=== PATIENT | female | born 2005 | race Caucasian/White ===

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

== ENCOUNTER 2024-03-30 19:31 | Emergency (ER) | payer OTHER, SELFPAY ==
--- NOTE | ~2024-03-30 | XR_ITS ---
EXAMINATION: XR LUMBOSACRAL SPINE CLINICAL INFORMATION: Low back pain COMPARISON: None available. TECHNIQUE: Three views of the lumbosacral spine. FINDINGS: There is normal lumbar lordosis. The vertebral heights and alignment is normal. There is no visible acute fracture, dislocation or subluxation. The SI joints are symmetrical and normal. XR/XR lumbar spine 2-3V IMPRESSION: Unremarkable lumbar spine exam.
--- NOTE | ~2024-03-30 | XR_ITS ---
EXAMINATION: XR CHEST, 2 VIEWS CLINICAL INFORMATION: Fever. COMPARISON: None. TECHNIQUE: PA and lateral views of the chest were obtained. FINDINGS: Lungs are clear. No consolidation, pneumothorax, or pleural effusion. Cardiac and mediastinal contours are normal. Pulmonary vasculature is unremarkable. Trachea is midline. Osseous structures are unremarkable. XR/XR chest 2V IMPRESSION: No acute cardiopulmonary findings.
--- NOTE | 2024-03-30 19:35 | ED_ITS ---
HPI - URI/Sore Throat General Chief Complaint: Upper Respiratory Symptoms Stated Complaint: Sore throat Time Seen by Provider: 03/30/24 20:12 Source: patient and RN notes reviewed Mode of arrival: ambulatory Limitations: no limitations History of Present Illness ED Provider: Nahomi Gonzales PA-C HPI Narrative: This is a 19-year-old female who presents emergency department with complaints of sore throat and body aches which had started today. Patient denies any fevers, chills. She also reports that over the last 2 days she has had low back pain, which occurred after lifting a heavy object at work 2 days ago. She denies any numbness or tingling or weakness into her lower legs. Pain does not radiate. She denies any sick contacts. Denies any headaches, chest pain, shortness of breath, abdominal pain, nausea, ear pain, nasal discharge, nasal congestion, vomiting or diarrhea. She endorses reports urinary frequency, denies any dysuria, hematuria. Denies chance of . No vaginal discharge or bleeding. No other complaints or concerns at this time. MD elicited complaint: sore throat Consistency: constant Severity: mild Able to tolerate fluids by mouth: Yes Exacerbating factors: swallowing Relieving factors: nothing Associated symptoms: sore throat Treatments prior to arrival: none Related Data Previous Rx's ?Medication ?Instructions ?Recorded ibuprofen 600 mg tablet 600 mg PO Q8H PRN pain #30 tabs 02/20/22 omeprazole 20 mg capsule,delayed 20 mg PO BID 30 days #60 caps 08/19/22 release ondansetron 4 mg disintegrating 4 mg PO Q8H PRN nausea and 08/19/22 tablet vomiting #20 tabs aluminum hydrox-magnesium carb 95 15 ml PO TID PRN dyspepsia #355 mL 08/24/22 mg-358 mg/15 mL oral suspension (Gaviscon) ibuprofen 600 mg tablet 600 mg PO Q6H PRN pain #30 tabs 12/14/22 ondansetron 4 mg disintegrating 4 mg PO Q8H PRN nausea and 01/08/23 tablet vomiting #20 tabs acetaminophen 500 mg tablet 500 mg PO Q6H PRN fever or pain 07/04/23 #20 tabs fluticasone propionate 50 1 spray intranasal Q12H #16 grams 07/04/23 mcg/actuation nasal spray,suspension (Flonase Allergy Relief) acetaminophen 650 mg 650 mg PO Q8H PRN pain #30 tabs 03/31/24 tablet,extended release (Tylenol 8 Hour) amoxicillin 875 mg-potassium 1 tab PO BID 10 days #20 tabs 03/31/24 clavulanate 125 mg tablet ibuprofen 600 mg tablet 600 mg PO Q6H PRN pain #30 tabs 03/31/24 Allergies Allergy/AdvReac Type Severity Reaction Status Date / Time No Known Allergies Allergy Verified 03/30/24 19:37 Review of Systems 2 Review of Systems: Yes all other systems are reviewed and are negative Constitutional: Constitutional: Reports as per [facility] Past Medical History Attestation statement: The following information was validated with the patient. Medical History No pertinent past medical history Social History Social History Alcohol intake: never Patient Tobacco Use Status: Never used Tobacco Smoked in Last 30 Days: No Advance Directives: No Advance Directives Information Provided: No Do you have a plan to hurt others: No Plan Patient : No Physical Exam 2 Vital Signs: Vital Signs: Last Vital Signs Temp 97.9 F 03/31/24 02:36 Pulse 102 H 03/31/24 02:36 Resp 16 03/31/24 02:36 BP 110/58 L 03/31/24 02:36 Pulse Ox 98 03/31/24 02:36 O2 Del Method Room Air 03/31/24 02:36 BMI result Body Mass Index 27.5 Const: General: cooperative, comfortable and no acute distress O rientation/consciousness: patient oriented x3 Limitations: no limitations HEENT: Other: Bilateral tonsillar hypertrophy and erythema, no exudates, uvula is midline. Tender anterior cervical lymphadenopathy; full range of the neck; no trismus, drooling, or dysphonia Head: Yes normal to inspection, Yes normocephalic and Yes atraumatic E ars: hearing grossly normal bilaterally and TM's normal bilaterally General nose exam: Normal external nose present Face and sinus: Yes normal facial exam Mouth: Normal oral and palatal mucosa present, oropharynx normal and moist mucous membranes Throat: Yes posterior oropharynx normal Eyes: General: appearance normal, both eyes and all related structures E yelids: Yes eyelids normal Conjunctivae: conjunctivae normal Sclerae: s clerae normal Pupils: Equal, round and reactive pupils present EOM: EOMs intact bilaterally Neck: Neck: Yes normal visual inspection, Yes full ROM and Yes no lymphadenopathy Lymphatic: no lymphadenopathy noted Chest: Chest palpation & inspection: normal inspection of the chest Resp: Effort & Inspection: normal respiratory effort and able to speak in complete sentences Auscultation: clear to auscultation bilaterally, no crackles, no rales, no rhonchi and no wheezes Cardio: Rate: regular rate Rhythm: regular rhythm Heart sounds: S1 normal heart sound present and S2 normal heart sound present GI: Other: Abdomen is soft, nontender, nondistended Inspection: Yes normal to inspection : General: Yes no CVA tenderness Back/Spine/Pelvis: Other: tenderness to palptation overlying the lumbar midine spine, no overlying skin changes, erythema or warmth. Back: no CVA tenderness Skin: General skin exam: no rashes or lesions noted Trauma: no lacerations or abrasions Wounds: no wounds Neuro: General: patient oriented x3 and moves all extremities Cranial nerves: Yes Equal, round and reactive pupils present Extrem: General: Yes normal to inspection Right upper extremity: normal to inspection Left upper extremity: normal to inspection Right lower extremity: normal to inspection Left lower extremity: normal to inspection Course Course Course Narrative: This is a Rapid Medical Exam performed in triage by Zuleyma Cisneros PA-C. Full HPI, ROS and PE to be performed by primary ED provider. 19 year-old F w/no sig PMHx presenting to the ED c/o sore throat x today. Also reports lethargy, & left sided low back pain non-radiating. admits to heavy lifting at work. denies sick contacts or travel, hematuria/dysuria, abdominal pain PE: Mild posterior oropharyngeal erythema, uvula midline, talking complete sentences. No CVAT Plan: viral testing, rapid strep Reevaluation(s) Reevaluation #1: Labs returned, she does have leukocytosis with left shift leukocytosis 20.7, chemistry within normal limits, she has no lactic acidosis. Urine does not appear to be profoundly infected. Given circumstances, as advised by my attending physician, Dr. Smith to obtain CT neck and CT abdomen as patient was complaining of back pain as well as sore throat, and unclear where the infection is. She does have tonsillar hypertrophy, and erythematous, likely source of infection however was advised to get CT of the neck as well as CT of the abdomen to rule out retropharyngeal abscess and/or pyelonephritis. Patient was seen by my attending physician, Dr. Hill, who evaluated patient, reporting that oropharynx is erythematous, with tonsillar exudates, appears to be streptococcal or pharyngitis in nature, does not deem that the CT scans are necessary at this time. She is tolerating oral secretions well without difficulty. She is feeling better after receiving fluids. She was given a 1 time dose of Rocephin, morphine, and Zofran. She is feeling much better. Given strict return precautions. She was discharged home with Augmentin. Vital signs improved, patient stable for discharge. Time: 02:06 Medications Administered Discontinued Medications Generic Name Dose Route Start Last Admin Trade Name Freq PRN Reason Stop Dose Admin Acetaminophen 975 mg 03/30/24 21:29 03/30/24 21:44 Acetaminophen 325 Mg Tablet PO 03/30/24 21:30 975 mg ONCE ONE Administration Sodium Chloride 1,000 mls @ 999 mls/hr 03/30/24 23:21 03/31/24 01:38 Ns IV 03/31/24 00:21 Infused .Q1H1M ONE Infusion Sodium Chloride 1,000 mls @ 999 mls/hr 03/30/24 23:42 03/31/24 01:39 Ns IV 03/31/24 00:42 Infused .Q1H1M ONE Infusion Ceftriaxone Sodium 1 gm/ 50 mls @ 100 mls/hr 03/31/24 01:25 03/31/24 02:00 Sodium Chloride IV 03/31/24 01:54 Infused ONCE ONE Infusion Ibuprofen 600 mg 03/30/24 23:21 03/30/24 23:54 Ibuprofen 600 Mg Tablet PO 03/30/24 23:22 600 mg ONCE ONE Administration Morphine Sulfate 4 mg 03/31/24 01:28 03/31/24 01:33 Morphine Sulfate 4 Mg/Ml Cartridge IVPUSH 03/31/24 01:29 4 mg ONCE ONE Administration Protocol Ondansetron HCl 4 mg 03/31/24 01:29 03/31/24 01:32 Ondansetron Hcl 4 Mg/2 Ml Vial IVPUSH 03/31/24 01:30 4 mg ONCE ONE Administration Medical Decision Making Medical Decision Making [facility] Narrative: This is a 19-year-old female who presents emergency department with complaints of sore throat, and back pain. On arrival, patient tachycardic at 125, temperature 99.3?, attributing to pain. She is nontoxic appearing, speaking in full sentences, no trismus, drooling or dysphonia. Oropharynx is erythematous, mild tonsillar hypertrophy or exudates noted. Patient has mild tenderness palpation along the lumbar midline spine, no CVA tenderness. Pain started after lifting a heavy box 2 days ago. Pain has been gradual. She has no urinary or bowel incontinence or retention. No saddle anesthesia. No distal weakness. She denies any urinary symptoms. Viral swabs were obtained, they are negative. X-ray of the lumbar spine negative. Patient was going to be discharged with viral like illness, and musculoskeletal pain however upon discharge, patient found to be febrile at 103.0 tachycardic at 150bpm. Patient moved to main emergency department, labs, blood cultures, lactic acid ordered. Chest x-ray also ordered as well as urine sample. It is unclear what is causing her to have these vital signs however will work patient up. Abdomen is soft and nontender, when inquired more her about urinary symptoms, she does report that she has urinated 3 times in the emergency room. She has no CVA tenderness. Airway is widely patent. Differential Diagnosis Differential Diagnoses: The differential diagnosis associated with the presentation includes Pharyngitis, CUBE CUTTER, UTI, pyelonephritis Admission/Observation Consideration of admission/observation: Escalation of care including admission/observation considered Lab Data [facility] Lab Attestation statement: I reviewed the patient's lab results. Leukocytosis noted at 20.7, with left shift, chemistry within normal limits, urine does not appear to be infected. U preg negative. Viral swabs negative. Negative mono, strep. 03/30/24 23:34 03/30/24 23:34 Labs: Lab Results 03/30/24 03/30/24 03/31/24 Range/Units 19:45 23:34 00:07 WBC 20.7 H (4.8-10.8) X10*3/uL RBC 4.75 (4.20-5.50) X10*6/uL Hgb 13.0 (12.0-16.0) g/dl Hct 38.2 (37.0-47.0) % MCV 80.4 (80.0-98.0) fL MCH 27.4 (27.0-33.0) pg MCHC 34.0 (31.0-35.0) g/dl RDW 12.6 (11.0-16.0) % Plt Count 306 (160-400) X10*3/uL MPV 9.6 (9.4-12.3) fL Immature Gran % (Auto) 0.5 H (0.0-0.4) % Neut % (Auto) 91.0 H (45-73) % Lymph % (Auto) 4.9 L (20-40) % Gibson % (Auto) 3.3 (2-11) % Eos % (Auto) 0.0 (0-4) % Baso % (Auto) 0.3 (0-2) % Lymph # (Auto) 1.0 L (1.2-4.9) X10*3/uL Gibson # (Auto) 0.7 (0.1-1.2) X10*3/uL Eos # (Auto) 0.0 (0.0-0.4) X10*3/uL Baso # (Auto) 0.1 (0.0-0.2) X10*3/uL Abs Immat Gran (auto) 0.11 H (0.00-0.03) X10*3/uL Absolute Neuts (auto) 18.8 H (2.0-8.3) x10*3/uL Absolute Nucleated RBC 0.000 (0.0-0.012) X10*3/uL Nucleated RBC % (auto) 0.0 (0.0-0.2) /100WBC Smear Tech's Comments VERIFIED Sodium 138 (135-145) mmol/L Potassium 3.7 (3.3-5.1) mmol/L Chloride 104 (96-108) mmol/L Carbon Dioxide 21 L (22-29) mmol/L Anion Gap 17 (12-20) BUN 13 (9-16) mg/dL Creatinine 0.76 (0.5-1.4) mg/dL Estim Creat Clear Calc 119.5 Estimated GFR > 60 Random Glucose 99 (60-115) mg/dL Lactic Acid 1.3 (0.5-2.0) mmol/L Calcium 9.6 (8.4-10.2) mg/dL Total Bilirubin 0.8 (0.0-1.0) mg/dL Direct Bilirubin 0.3 (0.0-0.5) mg/dL AST 15 (5-31) U/L ALT 19 (0-31) U/L Alkaline Phosphatase 49 (39-117) U/L Total Protein 8.1 H (6.5-8.0) g/dL Albumin 4.2 (3.5-5.0) g/dL Lipase 18 (8-78) U/L Beta HCG, Quant 6 mIU/mL Urine Color Urine Appearance Urine pH (5.0-9.0) Ur Specific [place] (1.005-1.025) Urine Protein (Neg-Trace) mg/dL Urine Glucose (UA) (Negative) mg/dL Urine Ketones (Negative) mg/dL Urine Blood (Negative) Urine Nitrite (Negative) Ur Leukocyte Esterase (Negative) Urine RBC (0-2) /HPF Urine WBC (0-5) /HPF Ur Squamous Epith Cells (0-2) /HPF Urine Bacteria (None Seen) Hyaline Casts (0-2) /LPF Urine Test (NEGATIVE) Monoscreen Negative (Negative) Influenza Type A (PCR) NEGATIVE (Negative) Influenza Type B (PCR) NEGATIVE (Negative) RSV RNA Qual (PCR) NEGATIVE (Negative) SARS-CoV-2 RNA (RT-PCR) NEGATIVE (Negative) S. pyogenes GrpA SCARLET Negative (Negative) 03/31/24 Range/Units 00:18 WBC (4.8-10.8) X10*3/uL RBC (4.20-5.50) X10*6/uL Hgb (12.0-16.0) g/dl Hct (37.0-47.0) % MCV (80.0-98.0) fL MCH (27.0-33.0) pg MCHC (31.0-35.0) g/dl RDW (11.0-16.0) % Plt Count (160-400) X10*3/uL MPV (9.4-12.3) fL Immature Gran % (Auto) (0.0-0.4) % Neut % (Auto) (45-73) % Lymph % (Auto) (20-40) % Gibson % (Auto) (2-11) % Eos % (Auto) (0-4) % Baso % (Auto) (0-2) % Lymph # (Auto) (1.2-4.9) X10*3/uL Gibson # (Auto) (0.1-1.2) X10*3/uL Eos # (Auto) (0.0-0.4) X10*3/uL Baso # (Auto) (0.0-0.2) X10*3/uL Abs Immat Gran (auto) (0.00-0.03) X10*3/uL Absolute Neuts (auto) (2.0-8.3) x10*3/uL Absolute Nucleated RBC (0.0-0.012) X10*3/uL Nucleated RBC % (auto) (0.0-0.2) /100WBC Smear Tech's Comments Sodium (135-145) mmol/L Potassium (3.3-5.1) mmol/L Chloride (96-108) mmol/L Carbon Dioxide (22-29) mmol/L Anion Gap (12-20) BUN (9-16) mg/dL Creatinine (0.5-1.4) mg/dL Estim Creat Clear Calc Estimated GFR Random Glucose (60-115) mg/dL Lactic Acid (0.5-2.0) mmol/L Calcium (8.4-10.2) mg/dL Total Bilirubin (0.0-1.0) mg/dL Direct Bilirubin (0.0-0.5) mg/dL AST (5-31) U/L ALT (0-31) U/L Alkaline Phosphatase (39-117) U/L Total Protein (6.5-8.0) g/dL Albumin (3.5-5.0) g/dL Lipase (8-78) U/L Beta HCG, Quant mIU/mL Urine Color Dark Yellow Urine Appearance Clear Urine pH 6.0 (5.0-9.0) Ur Specific [place] >= 1.030 H (1.005-1.025) Urine Protein 30 (1+) H (Neg-Trace) mg/dL Urine Glucose (UA) Negative (Negative) mg/dL Urine Ketones Trace (Negative) mg/dL Urine Blood Small (1+) H (Negative) Urine Nitrite Negative (Negative) Ur Leukocyte Esterase Trace H (Negative) Urine RBC 11-20 H (0-2) /HPF Urine WBC 6-10 H (0-5) /HPF Ur Squamous Epith Cells 3-5 (0-2) /HPF Urine Bacteria Trace (None Seen) Hyaline Casts 0-2 (0-2) /LPF Urine Test NEGATIVE (NEGATIVE) Monoscreen (Negative) Influenza Type A (PCR) (Negative) Influenza Type B (PCR) (Negative) RSV RNA Qual (PCR) (Negative) SARS-CoV-2 RNA (RT-PCR) (Negative) S. pyogenes GrpA SCARLET (Negative) Independent Interpretation I performed an independent interpretation of an: EKG Interpretation: Sinus tachycardia at a ventricular rate of 121 beats per minute, ID interval 158, no ST elevation or depression. Radiology Impression Discussion of test interpretation with radiology: I have reviewed the radiologist's reading. Radiologist Impression: XR/XR chest 2V IMPRESSION: No acute cardiopulmonary findings. Dictated By: Robin Angela MD Prescription Management I considered prescription management with: Antibiotic Discharge Plan Discharge Clinical Impression: Viral infection, Lumbar strain, Pharyngitis Patient Disposition: Home, Self-Care Instructions: Muscle Strain (ED), Acute Low Back Pain (ED), Viral Syndrome (ED), Back Pain (ED) Additional Instructions: You were seen in the emergency department due to sore throat and body aches. You tested negative for COVID, flu, RSV, and strep throat. It was thought that you have a throat infection which is causing you to have the symptoms. We are treating you an antibiotic, please finish the entire course even if you are feeling better. Please drink plenty of fluids get plenty of rest. Alternate between ibuprofen and Tylenol as needed for your symptoms. Follow-up with your primary care physician. Your x-ray of your lumbar spine was normal, you likely injured the muscles in your back, gentle stretching, massage, heat or ice can also help with your symptoms. If any new or worsening symptoms occur including but not limited to severe pain, chest pain, shortness for breath, inability to swallow, high fevers not responding to Tylenol or Motrin, please return for re-evaluation. Prescriptions: New amoxicillin-pot clavulanate 605125 mg tablet 1 tab PO BID 10 Days Qty: 20 0RF ibuprofen 600 mg tablet 600 mg PO Q6H PRN (Reason: pain) Qty: 30 0RF acetaminophen [Tylenol 8 Hour] 650 mg tablet extended release 650 mg PO Q8H PRN (Reason: pain) Qty: 30 0RF No Action ondansetron 4 mg tablet,disintegrating 4 mg PO Q8H PRN (Reason: nausea and vomiting) Qty: 20 0RF omeprazole 20 mg capsule,delayed release(DR/EC) 20 mg PO BID 30 Days Qty: 60 0RF ibuprofen 600 mg tablet 600 mg PO Q8H PRN (Reason: pain) Qty: 30 0RF Gaviscon 95-358 mg/15 mL suspension 15 ml PO TID PRN (Reason: dyspepsia) Qty: 355 0RF fluticasone propionate [Flonase Allergy Relief] 50 mcg/actuation spray,suspension 1 spray intranasal Q12H Qty: 16 0RF Rx Instructions: administer into each nostril acetaminophen 500 mg tablet 500 mg PO Q6H PRN (Reason: fever or pain) Qty: 20 0RF ibuprofen 600 mg tablet 600 mg PO Q6H PRN (Reason: pain) Qty: 30 0RF ondansetron 4 mg tablet,disintegrating 4 mg PO Q8H PRN (Reason: nausea and vomiting) Qty: 20 0RF Stand Alone Forms: Work/School Release Interventions: ED Discharge Assessment Last Done: 03/31/24 02:36 Discharge Date/Time: 03/31/24 02:30 Print Language: Com[place]an
[2024-03-30 19:36] VITALS: BP 129/64; PULSE 125; RESP 16; TEMP 37.4; O2SAT 99; BMI 27.5
[2024-03-30 19:59] LABS: IDNOW Serial# 58CA691E; Strep A Nucleic Acid Negative (Negative)
[2024-03-30 20:27] LABS: Influenza A PCR NEGATIVE (Negative); Influenza B PCR NEGATIVE (Negative); Resp Syncy Virus RNA Qual PCR NEGATIVE (Negative); SARS COV2 PCR INHOUSE NEGATIVE (Negative)
[2024-03-30] MEDS: Acetaminophen 325 MG TABLET 975 MG PO (21:44)
[2024-03-30 23:10] VITALS: BP 113/57; PULSE 150; RESP 20; TEMP 39.4; O2SAT 98
[2024-03-30 23:41] LABS: Basophils Absolute Auto 0.1 X10*3/uL (0.0-0.2); Basophils Percent Auto 0.3 % (0-2); Hematocrit 38.2 % (37.0-47.0); Imm Gran Abs Auto 0.11 X10*3/uL (0.00-0.03); Imm Gran Pct Auto 0.5 % (0.0-0.4); Lymphocytes Percent Auto 4.9 % (20-40); MANUAL DIFF FLAG SCAN; Mean Corpuscular Hemoglobin 27.4 pg (27.0-33.0); Mean Corpuscular Volume 80.4 fL (80.0-98.0); Mean Platelet Volume 9.6 fL (9.4-12.3); Monocytes Absolute Auto 0.7 X10*3/uL (0.1-1.2); Monocytes Percent Auto 3.3 % (2-11); Neutrophils Absolute Auto 18.8 x10*3/uL (2.0-8.3); Platelet Count 306 X10*3/uL (160-400); Red Blood Count 4.75 X10*6/uL (4.20-5.50); Red Cell Distribution Width 12.6 % (11.0-16.0); SCAN SMEAR FLAG 1; White Blood Count 20.7 X10*3/uL (4.8-10.8)
[2024-03-30] MEDS: 0.9 % Sodium Chloride 1,000 ML 999 ML IV ×2 (23:54→23:55)
[2024-03-30] MEDS: Ibuprofen 600 MG TABLET PO (23:54)
--- NOTE | 2024-03-30 23:56 | ECG_ITS ---
Test Reason : TACHY Blood Pressure : / mmHG Vent. Rate : 121 BPM Atrial Rate : 121 BPM P-R Int : 158 ms QRS Dur : 068 ms QT Int : 308 ms P-R-T Axes : 058 072 034 degrees QTc Int : 437 ms Sinus tachycardia Otherwise normal ECG When compared with ECG of 07-MAY-2023 22:31, QRS axis Shifted left Nonspecific T wave abnormality no longer evident in Anterior leads Referred By: Nahomi Gonzales Electronically Signed By:ELIOT CRESPO
[2024-03-30 23:58] LABS: Alanine Aminotransferase 19 U/L (0-31); Albumin Level 4.2 g/dL (3.5-5.0); Alkaline Phosphatase 49 U/L (39-117); Anion Gap 17 (12-20); Aspartate Amino Transferase 15 U/L (5-31); Bilirubin Direct 0.3 mg/dL (0.0-0.5); Bilirubin Total 0.8 mg/dL (0.0-1.0); Blood Urea Nitrogen 13 mg/dL (9-16); Calcium 9.6 mg/dL (8.4-10.2); Carbon Dioxide 21 mmol/L (22-29); Chloride 104 mmol/L (96-108); Creatinine Clr Calc Pharmacy 119.5; Estimated Glomerular Filt Rate > 60; Glucose Random 99 mg/dL (60-115); Lipase 18 U/L (8-78); Potassium 3.7 mmol/L (3.3-5.1); Sodium 138 mmol/L (135-145); Total Protein 8.1 g/dL (6.5-8.0)
[2024-03-30 23:59] LABS: Monotest Negative (Negative)
[2024-03-31] VITALS: BP 102/51; PULSE 114; RESP 20; TEMP 37.2; O2SAT 96
[2024-03-31] LABS: SLIDE REVIEW VERIFIED
[2024-03-31 00:26] LABS: Appearance Urine Clear; Color Urine Dark Yellow; Glucose Urine UA Negative (Negative); Leukocyte Esterase Urine Trace (Negative); Nitrite Urine Negative (Negative); Specific Gravity - Urine >= 1.030 (1.005-1.025); UMIC TRIGGER UACC YES; Urine Blood Small (1+) (Negative); Urine Ketones Trace mg/dL (Negative); Urine Protein 30 (1+) mg/dL (Neg-Trace)
[2024-03-31 00:31] LABS: Lactic Acid 1.3 mmol/L (0.5-2.0)
[2024-03-31 00:31] LABS: Bacteria Urine Trace (None Seen); Hyaline Casts Urine 0-2 /LPF (0-2); UACC Culture Trigger YES
[2024-03-31 00:42] LABS: HCG Quantitative 6 mIU/mL
[2024-03-31 01:03] LABS: UPreg QC Valid YES; Urine Pregnancy NEGATIVE (NEGATIVE)
[2024-03-31] MEDS: cefTRIAXone sodium 1 GM in 0.9 % Sodium Chloride 50 ML IV (01:29)
[2024-03-31] MEDS: ondansetron HCL 4 MG/2 ML VIAL IVPUSH (01:32)
[2024-03-31 01:33] VITALS: RESP 17
[2024-03-31] MEDS: Morphine Sulfate 4 MG/ML CARTRIDGE IVPUSH (01:33)
[2024-03-31 01:39] VITALS: BP 101/51; PULSE 98; RESP 11; TEMP 36.8; O2SAT 96
[2024-03-31 02:02] VITALS: BP 102/56; PULSE 97; RESP 16; TEMP 36.6; O2SAT 98
[2024-03-31 02:03] VITALS: PULSE 97; O2SAT 98
[2024-03-31 02:36] VITALS: BP 110/58; PULSE 102; RESP 16; TEMP 36.6; O2SAT 98
== END 2024-03-31 02:30 | disposition home or self-care (01) ==
PROVIDERS: Physician Assistant; Physician Assistant Medical; Emergency Provider Emergency Medicine
DX: B34.9 Viral infection, unspecified (principal); J02.9 Acute pharyngitis, unspecified; S39.012A Strain of muscle, fascia and tendon of lower back, initial encounter; X50.0XXA Overexertion from strenuous movement or load, initial encounter; D72.829 Elevated white blood cell count, unspecified; Y93.89 Activity, other specified; Y92.9 Unspecified place or not applicable; Y99.0 Civilian activity done for income or pay
CPT/HCPCS: 0241U; 36415; 71046; 72100; 80048; 80076; 81001; 81025; 83605; 83690; 84702; 85025; 86308; 87040; 87086; 87651; 93005; 96361; 96374; 96375; 99284; 99285; J0696; J2270; J2405

== ENCOUNTER → 2024-03-30 23:56 | Outpatient (BNV) | payer OTHER, SELFPAY | PROVIDERS: Emergency Provider Emergency Medicine; Visit Provider Internal Medicine | DX: R00.0 Tachycardia, unspecified (principal) | CPT/HCPCS: 93010 ==

== ENCOUNTER 2024-10-08 11:16 | Emergency (ER) | payer OTHER, SELFPAY ==
[2024-10-08 12:01] VITALS: BP 114/53; PULSE 147; RESP 22; TEMP 38.3; O2SAT 98; BMI 39.3
--- NOTE | 2024-10-08 12:04 | ED.GENADULT ---
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 Patient denies any chest pain, shortness of breath, neck pain, neck stiffness, headache, shortness of breath, abdominal pain, diarrhea. No recent travel or known sick contact. Related Data Previous Rx's ?Medication ?Instructions ?Recorded ibuprofen 600 mg tablet 600 mg PO Q8H PRN pain #30 tabs 02/20/22 omeprazole 20 mg capsule,delayed 20 mg PO BID 30 days #60 caps 08/19/22 release ondansetron 4 mg disintegrating 4 mg PO Q8H PRN nausea and 08/19/22 tablet vomiting #20 tabs aluminum hydrox-magnesium carb 95 15 ml PO TID PRN dyspepsia #355 mL 08/24/22 mg-358 mg/15 mL oral suspension (Gaviscon) ibuprofen 600 mg tablet 600 mg PO Q6H PRN pain #30 tabs 12/14/22 ondansetron 4 mg disintegrating 4 mg PO Q8H PRN nausea and 01/08/23 tablet vomiting #20 tabs acetaminophen 500 mg tablet 500 mg PO Q6H PRN fever or pain 07/04/23 #20 tabs fluticasone propionate 50 1 spray intranasal Q12H #16 grams 07/04/23 mcg/actuation nasal spray,suspension (Flonase Allergy Relief) acetaminophen 650 mg 650 mg PO Q8H PRN pain #30 tabs 03/31/24 tablet,extended release (Tylenol 8 Hour) amoxicillin 875 mg-potassium 1 tab PO BID 10 days #20 tabs 03/31/24 clavulanate 125 mg tablet ibuprofen 600 mg tablet 600 mg PO Q6H PRN pain #30 tabs 03/31/24 acetaminophen 325 mg tablet 650 mg (2 x 325 mg) PO Q4H PRN 10/08/24 (Tylenol) fever or pain #30 tabs ondansetron 4 mg disintegrating 4 mg PO Q6H PRN nausea and 10/08/24 tablet vomiting #12 tabs Allergies Allergy/AdvReac Type Severity Reaction Status Date / Time No Known Allergies Allergy Verified 10/08/24 12:06 Review of Systems Review of Systems: Yes all other systems are reviewed and are negative Constitutional: Constitutional: Reports no additional constitutional complaints, Reports body ache(s), Denies chills, Reports fever(s), Denies headache(s) and Denies weakness Eyes: Eyes: Reports no additional eye complaints and Denies change in vision ENT: Reports system reviewed and no additional complaints, except as documented, Denies dizziness, Denies headache(s), Denies nasal congestion, Denies nasal discharge and Denies neck pain Cardiovascular: Cardiovascular: Reports no additional cardiovascular complaints, Denies chest pain, Denies leg edema and Denies dyspnea Respiratory: Respiratory: Reports no additional respiratory complaints, Denies cough and Denies dyspnea Gastrointestinal: Gastrointestinal: Reports no additional gastrointestinal complaints, Denies abdominal pain, Denies diarrhea, Reports nausea and Reports vomiting Genitourinary: Genitourinary: Reports no additional female genitourinary complaints and Denies urinary incontinence Musculoskeletal: Musculoskeletal: Reports no additional musculoskeletal complaints, Denies back pain, Denies arthralgias, Denies joint swelling, Denies neck pain, Denies numbness and Denies tingling Integumentary/Breasts: Skin/Breast: Reports system reviewed and no additional complaints, except as docu and Denies rash Neurologic: Reports system reviewed and no additional complaints, except as documented, Denies Abnormal speech present, Denies dizziness, Denies headache(s), Denies numbness, Denies tingling and Denies weakness [facility] Past Medical History Attestation statement: The following information was validated with the patient. Source: old records reviewed and nursing notes reviewed Medical History No pertinent past medical history Social History Social History Alcohol intake: never Patient Tobacco Use Status: Never used Tobacco Physical Exam ED Vital Signs: Vital Signs - 24 hr 10/08/24 12:01 10/08/24 15:39 Temperature 100.9 F H 99.3 F Pulse Rate 147 H 127 H Respiratory Rate 22 H 18 Blood Pressure 114/53 L 116/54 L Pulse Oximetry 98 99 Oxygen Delivery Method Room Air BMI result Body Mass Index 39.3 Const General: cooperative, healthy appearing, comfortable and no acute distress Orientation/consciousness: patient oriented x3 Limitations: no limitations HENMT Head: Yes normal to inspection Ears: hearing grossly normal bilaterally and TM's normal bilaterally General nose exam: Normal external nose present Face and sinus: Yes normal facial exam Mouth: Normal oral and palatal mucosa present Throat: Yes posterior oropharynx normal, Yes tonsils normal and Yes uvula midline Eyes General: appearance normal, both eyes and all related structures Pupils: Equal, round and reactive pupils present Neck Neck: Yes normal visual inspection, Yes full ROM, Yes no lymphadenopathy and Yes no meningeal signs Chest Chest palpation & inspection: normal inspection of the chest Resp Effort & Inspection: normal respiratory effort Auscultation: clear to auscultation bilaterally Cardio Rate: regular rate Rhythm: regular rhythm Peripheral pulses: Peripheral pulses 2+ throughout GI Inspection: Yes normal to inspection Palpation (GI): Soft to palpation and nontender Auscultation: normal bowel sounds Back/Spine/Pelvis Thoracic/Lumbar Spine: thoracic and lumbar spine normal to inspection Skin General skin exam: no rashes or lesions noted Neuro General: patient oriented x3, no meningeal signs, no focal motor deficits and normal sensation to monofilament Cranial nerves: Yes Equal, round and reactive pupils present Cognition (Neuro): normal cognition Speech: No Abnormal speech present Gait exam (Neuro): Normal gait present Motor exam (neuro): 5/5 motor strength present throughout Extrem General: Yes normal to inspection, Yes no pedal edema and Yes no calf tenderness Course Course Course Narrative: Patient complains of vomiting and fever starting last night along with generalized body pains Labs and swabs are ordered as well as Tylenol and Zofran for vomiting and fever This is rapid medical exam done in triage pending full evaluation exam and disposition by ER provider Medications Administered Discontinued Medications Generic Name Dose Route Start Last Admin Trade Name Freq PRN Reason Stop Dose Admin Acetaminophen 975 mg 10/08/24 12:03 10/08/24 12:09 Acetaminophen 325 Mg Tablet PO 10/08/24 12:04 975 mg ONCE ONE Administration Ondansetron HCl 4 mg 10/08/24 12:02 10/08/24 12:09 Ondansetron Odt 4 Mg Tab.Rapdis TRANSLINGU 10/08/24 12:03 4 mg ONCE ONE Administration Medical Decision Making Medical Decision Making [facility] Narrative: 19-year-old female here with flu-like symptoms since yesterday. Had labs and urine testing from triage switch show mild leukocytosis otherwise unremarkable. Flu a test is positive. Patient was febrile and tachycardic initially. She received Zofran and Tylenol. She reports she also give herself Motrin while she was in the waiting room. She is drinking sips of water. She has no focal abdominal pain. She is nontoxic appearing she does have some mild tachycardia but is orally hydrating and so I think she can continue to do this at home. I discussed with the patient about Tamiflu as well as potential side effect and she declined this. Reviewed worrisome signs and symptoms of when to return to the emergency room. Comfortable plan for discharge home. Differential Diagnosis Differential Diagnoses: The differential diagnosis associated with the presentation includes Influenza Low suspicion for acute abdomen including acute appendicitis, ovarian torsion, pyelonephritis, renal colic, diverticulitis based on clinical exam Admission/Observation Consideration of admission/observation: Escalation of care including admission/observation considered Flu A with mild tachycardia that is orally hydrating. I do not believe at this point that she needs IV and IV hydration as she can orally hydrate at home Lab Data [facility] Lab Attestation statement: I reviewed the patient's lab results. 10/08/24 12:40 10/08/24 12:40 Labs: Lab Results 10/08/24 Range/Units 12:40 WBC 12.0 H (4.8-10.8) X10*3/uL RBC 4.41 (4.20-5.50) X10*6/uL Hgb 12.0 (12.0-16.0) g/dl Hct 35.9 L (37.0-47.0) % MCV 81.4 (80.0-98.0) fL MCH 27.2 (27.0-33.0) pg MCHC 33.4 (31.0-35.0) g/dl RDW 12.6 (11.0-16.0) % Plt Count 304 (160-400) X10*3/uL MPV 9.7 (9.4-12.3) fL Immature Gran % (Auto) 0.6 H (0.0-0.4) % Neut % (Auto) 92.6 H (45-73) % Lymph % (Auto) 2.3 L (20-40) % [place] % (Auto) 4.0 (2-11) % Eos % (Auto) 0.2 (0-4) % Baso % (Auto) 0.3 (0-2) % Lymph # (Auto) 0.3 L (1.2-4.9) X10*3/uL [place] # (Auto) 0.5 (0.1-1.2) X10*3/uL Eos # (Auto) 0.0 (0.0-0.4) X10*3/uL Baso # (Auto) 0.0 (0.0-0.2) X10*3/uL Abs Immat Gran (auto) 0.07 H (0.00-0.03) X10*3/uL Absolute Neuts (auto) 11.1 H (2.0-8.3) x10*3/uL Absolute Nucleated RBC 0.000 (0.0-0.012) X10*3/uL Nucleated RBC % (auto) 0.0 (0.0-0.2) /100WBC Smear Tech's Comments VERIFIED Sodium 138 (135-145) mmol/L Potassium 3.7 (3.3-5.1) mmol/L Chloride 105 (96-108) mmol/L Carbon Dioxide 21 L (22-29) mmol/L Anion Gap 16 (12-20) BUN 13 (9-16) mg/dL Creatinine 0.78 (0.5-1.4) mg/dL Estim Creat Clear Calc 135.0 Estimated GFR > 60 Random Glucose 119 H (60-115) mg/dL Calcium 9.0 D (8.4-10.2) mg/dL Total Bilirubin 0.6 (0.0-1.0) mg/dL Direct Bilirubin 0.2 (0.0-0.5) mg/dL AST 28 (5-31) U/L ALT 35 H (0-31) U/L Alkaline Phosphatase 42 (39-117) U/L Total Protein 8.2 H (6.5-8.0) g/dL Albumin 4.1 (3.5-5.0) g/dL Lipase 10 (8-78) U/L Beta HCG, Quant < 2 mIU/mL Urine Color Dark Yellow Urine Appearance Cloudy Urine pH 5.5 (5.0-9.0) Ur Specific [place] >= 1.030 H (1.005-1.025) Urine Protein 30 (1+) H (Neg-Trace) mg/dL Urine Glucose (UA) Negative (Negative) mg/dL Urine Ketones Trace (Negative) mg/dL Urine Blood Moderate (2+) H (Negative) Urine Nitrite Negative (Negative) Ur Leukocyte Esterase Trace H (Negative) Urine RBC 6-10 H (0-2) /HPF Urine WBC 0-5 (0-5) /HPF Ur Squamous Epith Cells 3-5 (0-2) /HPF Urine Bacteria Trace (None Seen) Hyaline Casts 0-2 (0-2) /LPF Urine Test NEGATIVE (NEGATIVE) COVID-19 (ROBYN) Negative (Negative) COVID-19 Clin Com See Note Influenza Type A (SCARLET) Positive A (Negative) Influenza Type B ([place]) Negative (Negative) Influenza A & B Note See Note Tests considered The following testing was considered but not selected: No focal abdominal pain to suggest need for CT abdomen imaging Prescription Management I considered prescription management with: Antiviral Discharge Plan Discharge Clinical Impression: Influenza A Patient Disposition: Home, Self-Care Instructions: Influenza (ED) Prescriptions: New ondansetron 4 mg tablet,disintegrating 4 mg PO Q6H PRN (Reason: nausea and vomiting) Qty: 12 0RF acetaminophen [Tylenol] 325 mg tablet 650 mg PO Q4H PRN (Reason: fever or pain) Qty: 30 0RF No Action ondansetron 4 mg tablet,disintegrating 4 mg PO Q8H PRN (Reason: nausea and vomiting) Qty: 20 0RF omeprazole 20 mg capsule,delayed release(DR/EC) 20 mg PO BID 30 Days Qty: 60 0RF ibuprofen 600 mg tablet 600 mg PO Q8H PRN (Reason: pain) Qty: 30 0RF Gaviscon 95-358 mg/15 mL suspension 15 ml PO TID PRN (Reason: dyspepsia) Qty: 355 0RF fluticasone propionate [Flonase Allergy Relief] 50 mcg/actuation spray,suspension 1 spray intranasal Q12H Qty: 16 0RF Rx Instructions: administer into each nostril acetaminophen 500 mg tablet 500 mg PO Q6H PRN (Reason: fever or pain) Qty: 20 0RF ibuprofen 600 mg tablet 600 mg PO Q6H PRN (Reason: pain) Qty: 30 0RF ondansetron 4 mg tablet,disintegrating 4 mg PO Q8H PRN (Reason: nausea and vomiting) Qty: 20 0RF amoxicillin-pot clavulanate 875-125 mg tablet 1 tab PO BID 10 Days Qty: 20 0RF ibuprofen 600 mg tablet 600 mg PO Q6H PRN (Reason: pain) Qty: 30 0RF acetaminophen [Tylenol 8 Hour] 650 mg tablet extended release 650 mg PO Q8H PRN (Reason: pain) Qty: 30 0RF Referrals: Physician,Unknown J [Primary Care Provider] - 1 week Stand Alone Forms: Work/School Release Print Language: Taiwanese
[2024-10-08] MEDS: Ondansetron ODT 4 MG TAB.RAPDIS TRANSLINGU (12:09)
[2024-10-08] MEDS: Acetaminophen 325 MG TABLET 975 MG PO (12:09)
--- NOTE | 2024-10-08 12:13 | ECG_ITS ---
Test Reason : tachycardia Blood Pressure : */* mmHG Vent. Rate : 132 BPM Atrial Rate : 132 BPM P-R Int : 146 ms QRS Dur : 68 ms QT Int : 292 ms P-R-T Axes : 55 67 17 degrees QTcB Int : 432 ms Sinus tachycardia Otherwise normal ECG When compared with ECG of 31-Mar-2024 00:17, No significant change was found Referred By: Morteza Chaudhry Electronically Signed By: ELIOT CRESPO
[2024-10-08 12:50] LABS: Basophils Percent Auto 0.3 % (0-2); Eosinophils Percent Auto 0.2 % (0-4); Hematocrit 35.9 % (37.0-47.0); Imm Gran Abs Auto 0.07 X10*3/uL (0.00-0.03); Imm Gran Pct Auto 0.6 % (0.0-0.4); Lymphocytes Absolute Auto 0.3 X10*3/uL (1.2-4.9); Lymphocytes Percent Auto 2.3 % (20-40); MANUAL DIFF FLAG SCAN; Mean Corpuscular HGB Conc 33.4 g/dl (31.0-35.0); Mean Corpuscular Hemoglobin 27.2 pg (27.0-33.0); Mean Corpuscular Volume 81.4 fL (80.0-98.0); Mean Platelet Volume 9.7 fL (9.4-12.3); Monocytes Absolute Auto 0.5 X10*3/uL (0.1-1.2); Neutrophils Absolute Auto 11.1 x10*3/uL (2.0-8.3); Neutrophils Percent Auto 92.6 % (45-73); Platelet Count 304 X10*3/uL (160-400); Red Blood Count 4.41 X10*6/uL (4.20-5.50); Red Cell Distribution Width 12.6 % (11.0-16.0); SCAN SMEAR FLAG 1
[2024-10-08 12:56] LABS: Appearance Urine Cloudy; Color Urine Dark Yellow; Glucose Urine UA Negative (Negative); Leukocyte Esterase Urine Trace (Negative); Nitrite Urine Negative (Negative); PH 5.5 (5.0-9.0); Specific Gravity - Urine >= 1.030 (1.005-1.025); UMIC TRIGGER UACC YES; Urine Blood Moderate (2+) (Negative); Urine Ketones Trace mg/dL (Negative); Urine Protein 30 (1+) mg/dL (Neg-Trace)
[2024-10-08 12:57] LABS: Urine Pregnancy NEGATIVE (NEGATIVE)
[2024-10-08 12:58] LABS: UPreg QC Valid YES
[2024-10-08 12:59] LABS: Bacteria Urine Trace (None Seen); Hyaline Casts Urine 0-2 /LPF (0-2); WBC Urine 0-5 /HPF (0-5)
[2024-10-08 13:13] LABS: COVID-19 Test Negative (Negative); IDNOW Serial# 16C4AD1C; IDNOW Serial# 58CA691E; Influenza A Positive (Negative); Influenza B2 Negative (Negative)
[2024-10-08 13:38] LABS: SLIDE REVIEW VERIFIED
[2024-10-08 13:57] LABS: Alanine Aminotransferase 35 U/L (0-31); Albumin Level 4.1 g/dL (3.5-5.0); Alkaline Phosphatase 42 U/L (39-117); Anion Gap 16 (12-20); Aspartate Amino Transferase 28 U/L (5-31); Bilirubin Direct 0.2 mg/dL (0.0-0.5); Bilirubin Total 0.6 mg/dL (0.0-1.0); Blood Urea Nitrogen 13 mg/dL (9-16); Carbon Dioxide 21 mmol/L (22-29); Chloride 105 mmol/L (96-108); Estimated Glomerular Filt Rate > 60; Glucose Random 119 mg/dL (60-115); Lipase 10 U/L (8-78); Potassium 3.7 mmol/L (3.3-5.1); Sodium 138 mmol/L (135-145); Total Protein 8.2 g/dL (6.5-8.0)
[2024-10-08 14:22] LABS: HCG Quantitative < 2 mIU/mL
[2024-10-08 15:39] VITALS: BP 116/54; PULSE 127; RESP 18; TEMP 37.4; O2SAT 99
[2024-10-08 16:06] VITALS: BP 116/54; PULSE 127; RESP 18; TEMP 37.4; O2SAT 99
== END 2024-10-08 16:07 | disposition home or self-care (01) ==
LOC: HO.ED 16:03
PROVIDERS: Physician Assistant Medical; Emergency Provider Emergency Medicine
DX: J10.1 Influenza due to other identified influenza virus with other respiratory manifestations (principal); M79.10 Myalgia, unspecified site; D72.829 Elevated white blood cell count, unspecified; R00.0 Tachycardia, unspecified; Z11.52 Encounter for screening for COVID-19; Z79.899 Other long term (current) drug therapy
CPT/HCPCS: 80048; 80076; 81001; 81025; 83690; 84702; 85025; 87502; 87635; 93005; 99283; 99284

== ENCOUNTER → 2024-10-08 12:13 | Outpatient (BNV) | payer OTHER, SELFPAY | PROVIDERS: Emergency Provider Emergency Medicine; Visit Provider Internal Medicine | DX: R00.0 Tachycardia, unspecified (principal) | CPT/HCPCS: 93010 ==

== ENCOUNTER 2025-03-20 11:53 | Emergency (ER) | payer SELFPAY ==
--- NOTE | 2025-03-20 12:35 | ED.GENADULT ---
HPI - General Adult General Chief complaint: Abdominal Pain Stated complaint: flu like Time Seen by Provider: 03/20/25 15:03 Source: patient Mode of arrival: ambulatory Limitations: no limitations and language barrier ([place] speaking district medical examiner utilized) History of Present Illness ED Provider: bill gore np HPI narrative: Patient is a 20-year-old female who presents emergency department for evaluation, reports that over the past 4 days she has been feeling generally tired and nauseous, has had an intermittent headache. Yesterday began with lower abdominal discomfort just above her bladder in associated urinary frequency. Reports history of irregular menstrual cycles LMP in November of 2024 not currently on OCP, is currently sexually active. Denies fevers, chills, headache, dizziness, vision changes, neck pain, neck stiffness, chest pain, shortness of breath, difficulty breathing, cough, sore throat, vomiting, numbness or tingling of the extremities, abnormal vaginal discharge or bleeding, concern for sexually transmitted infections Related Data Previous Rx's ?Medication ?Instructions ?Recorded ibuprofen 600 mg tablet 600 mg PO Q8H PRN pain #30 tabs 02/20/22 omeprazole 20 mg capsule,delayed 20 mg PO BID 30 days #60 caps 08/19/22 release ondansetron 4 mg disintegrating 4 mg PO Q8H PRN nausea and 08/19/22 tablet vomiting #20 tabs aluminum hydrox-magnesium carb 95 15 ml PO TID PRN dyspepsia #355 mL 08/24/22 mg-358 mg/15 mL oral suspension (Gaviscon) ibuprofen 600 mg tablet 600 mg PO Q6H PRN pain #30 tabs 12/14/22 ondansetron 4 mg disintegrating 4 mg PO Q8H PRN nausea and 01/08/23 tablet vomiting #20 tabs acetaminophen 500 mg tablet 500 mg PO Q6H PRN fever or pain 07/04/23 #20 tabs fluticasone propionate 50 1 spray intranasal Q12H #16 grams 07/04/23 mcg/actuation nasal spray,suspension (Flonase Allergy Relief) acetaminophen 650 mg 650 mg PO Q8H PRN pain #30 tabs 03/31/24 tablet,extended release (Tylenol 8 Hour) amoxicillin 875 mg-potassium 1 tab PO BID 10 days #20 tabs 03/31/24 clavulanate 125 mg tablet ibuprofen 600 mg tablet 600 mg PO Q6H PRN pain #30 tabs 03/31/24 acetaminophen 325 mg tablet 650 mg (2 x 325 mg) PO Q4H PRN 10/08/24 (Tylenol) fever or pain #30 tabs ondansetron 4 mg disintegrating 4 mg PO Q6H PRN nausea and 10/08/24 tablet vomiting #12 tabs cefuroxime axetil 250 mg tablet 250 mg PO BID #10 tabs 03/20/25 Allergies Allergy/AdvReac Type Severity Reaction Status Date / Time No Known Allergies Allergy Verified 03/20/25 12:42 Review of Systems Review of Systems: Yes all other systems are reviewed and are negative [facility] Past Medical History Attestation statement: The following information was validated with the patient. Source: old records reviewed Medical History No pertinent past medical history Social History Social History Alcohol intake: never Patient Tobacco Use Status: Never used Tobacco Advance Directives: No Advance Directives Information Provided: No Do you have a plan to hurt others: No Plan Physical Exam ED Vital Signs: Vital Signs - 24 hr 03/20/25 12:39 03/20/25 15:30 03/20/25 17:13 Temperature 97.0 F 98.4 F Pulse Rate 88 81 81 Respiratory Rate 20 18 18 Blood Pressure 130/93 H 138/71 138/71 Pulse Oximetry 97 99 99 Oxygen Delivery Method Room Air Room Air Room Air BMI result Body Mass Index 40.4 Appearance: Alert.?Oriented to person, place and time. No acute distress.?Normal affect. Eyes: Pupils equal, round and reactive to light.? ENT: TM normal bilaterally. Pharynx normal.?? Neck: Normal inspection.? Neck supple.??No cervical adenopathy CVS: Heart sounds normal. Normal heart rate and rhythm.? Pulses normal.?? Respiratory: No respiratory distress.? Lung sounds clear to auscultation bilaterally?? Abdomen: Soft and non-tender. Normoactive bowel sounds. No CVAT. Skin: Skin warm and dry.? Normal skin color.? ? Extremities: No lower extremity edema.? Neuro: Moves all extremities spontaneously. Sensation intact bilaterally. No motor deficits. Ambulates with normal steady gait. Course Course Course Narrative: Medical screening exam performed. Please refer to detailed history, exam, evaluation, and management by primary provider. 20-year-old female with a 4 day history of generalized weakness, abdominal pain nausea. Patient with irregular menses and is currently sexually active. Medical Decision Making Medical Decision Making [facility] Narrative: Patient is a 20 year old female no reported past medical history who presents emergency department for evaluation of general malaise, intermittent headache, suprapubic abdominal pain and nausea as per HPI. Overall she is well-appearing, nontoxic, afebrile no tachycardia. No respiratory distress hypoxia or tachypnea. LS CTA. She has a benign abdominal examination. No CVA tenderness. She is endorsing intermittent headache, has no focal neurological deficits on evaluation. No recent precipitating injury. Workup obtained prior to my assumption of care; CBC without leukocytosis anemia or thrombocytopenia. No electrolyte derangement. No JOSE CARLOS. LFTs unremarkable. HCG is negative. Urinalysis is concerning for UTI versus urogenital contamination, she is adamant that she adequately performed clean-catch specimen, squamous epithelial cells are her upper present. However given the suprapubic localization of her pain and urinary frequency will treat as urinary tract infection. Viral serologies are negative. Advised outpatient follow-up with PCP in given strict return precautions. All questions answered. Stable for discharge Differential Diagnosis Differential Diagnoses: The differential diagnosis associated with the presentation includes ( See narrative above) Admission/Observation Consideration of admission/observation: Escalation of care including admission/observation considered ( see narrative above) Lab Data [facility] Lab Attestation statement: I reviewed the patient's lab results. ( see narrative above) 03/20/25 12:57 03/20/25 12:57 Labs: Lab Results 03/20/25 03/20/25 Range/Units 12:57 15:26 WBC 7.7 (4.8-10.8) X10*3/uL RBC 4.80 (4.20-5.50) X10*6/uL Hgb 13.1 (12.0-16.0) g/dl Hct 38.5 (37.0-47.0) % MCV 80.2 (80.0-98.0) fL MCH 27.3 (27.0-33.0) pg MCHC 34.0 (31.0-35.0) g/dl RDW 12.8 (11.0-16.0) % Plt Count 323 (160-400) X10*3/uL MPV 9.3 L (9.4-12.3) fL Immature Gran % (Auto) 0.4 (0.0-0.4) % Neut % (Auto) 71.0 (45-73) % Lymph % (Auto) 21.7 (20-40) % [place] % (Auto) 5.5 (2-11) % Eos % (Auto) 0.9 (0-4) % Baso % (Auto) 0.5 (0-2) % Lymph # (Auto) 1.7 (1.2-4.9) X10*3/uL [place] # (Auto) 0.4 (0.1-1.2) X10*3/uL Eos # (Auto) 0.1 (0.0-0.4) X10*3/uL Baso # (Auto) 0.0 (0.0-0.2) X10*3/uL Abs Immat Gran (auto) 0.03 (0.00-0.03) X10*3/uL Absolute Neuts (auto) 5.4 (2.0-8.3) x10*3/uL Absolute Nucleated RBC 0.000 (0.0-0.012) X10*3/uL Nucleated RBC % (auto) 0.0 (0.0-0.2) /100WBC Sodium 140 (135-145) mmol/L Potassium 4.4 (3.3-5.1) mmol/L Chloride 106 (96-108) mmol/L Carbon Dioxide 27 (22-29) mmol/L Anion Gap 11 L (12-20) BUN 13 (9-16) mg/dL Creatinine 0.73 (0.5-1.4) mg/dL Estim Creat Clear Calc 145.4 Estimated GFR > 60 Random Glucose 108 (60-115) mg/dL Calcium 9.3 (8.4-10.2) mg/dL Total Bilirubin 0.6 (0.0-1.0) mg/dL AST 26 (5-31) U/L ALT 28 (0-31) U/L Alkaline Phosphatase 44 (39-117) U/L Total Protein 8.1 H (6.5-8.0) g/dL Albumin 4.4 (3.5-5.0) g/dL Lipase 15 (8-78) U/L Beta HCG, Quant < 2 mIU/mL Urine Color Dark Yellow Urine Appearance Clear Urine pH 5.5 (5.0-9.0) Ur Specific [place] >= 1.030 H (1.005-1.025) Urine Protein Trace (Neg-Trace) mg/dL Urine Glucose (UA) Negative (Negative) mg/dL Urine Ketones Trace (Negative) mg/dL Urine Blood Trace H (Negative) Urine Nitrite Negative (Negative) Ur Leukocyte Esterase Trace H (Negative) Urine RBC 6-10 H (0-2) /HPF Urine WBC 11-20 H (0-5) /HPF Ur Squamous Epith Cells 6-10 (0-2) /HPF Urine Bacteria 3+ (None Seen) Hyaline Casts 3-5 (0-2) /LPF Influenza Type A (PCR) NEGATIVE (Negative) Influenza Type B (PCR) NEGATIVE (Negative) RSV RNA Qual (PCR) NEGATIVE (Negative) SARS-CoV-2 RNA (RT-PCR) NEGATIVE (Negative) External Record Review External record reviewed: Outpatient record Prescription Management I considered prescription management with: Pain Medication ( acetaminophen/ibuprofen) and Antibiotic Discharge Plan Discharge Clinical Impression: Urinary tract infection Patient Disposition: Home, Self-Care Instructions: Urinary Tract Infection in Women (ED) Additional Instructions: As discussed, based on symptoms and exam today is concerning for urinary tract infection for which antibiotics has been sent to your pharmacy. Please complete the entire course. Do not skip any doses or stop taking early even if you begin to feel better. Be sure that you are staying well hydrated, drinking plenty of fluids. You can take ibuprofen 200 mg, 3 tablets (600mg) every 6-8 hours as needed for pain, in addition to Tylenol 500 mg, 2 tablets (1,000mg) every 4-6 hours as needed for pain, but not to exceed 3 doses daily (3,000mg).? Return to emergency department any new or worsening symptoms or concerns. While taking antibiotics, please include probiotics that can be found over the counter or yogurt in your diet. If symptoms of a yeast infection or diarrhea occur, please seek evaluation. Prescriptions: New cefuroxime axetil 250 mg tablet 250 mg PO BID Qty: 10 0RF No Action ondansetron 4 mg tablet,disintegrating 4 mg PO Q8H PRN (Reason: nausea and vomiting) Qty: 20 0RF omeprazole 20 mg capsule,delayed release(DR/EC) 20 mg PO BID 30 Days Qty: 60 0RF ibuprofen 600 mg tablet 600 mg PO Q8H PRN (Reason: pain) Qty: 30 0RF Gaviscon 95-358 mg/15 mL suspension 15 ml PO TID PRN (Reason: dyspepsia) Qty: 355 0RF fluticasone propionate [Flonase Allergy Relief] 50 mcg/actuation spray,suspension 1 spray intranasal Q12H Qty: 16 0RF Rx Instructions: administer into each nostril acetaminophen 500 mg tablet 500 mg PO Q6H PRN (Reason: fever or pain) Qty: 20 0RF ondansetron 4 mg tablet,disintegrating 4 mg PO Q6H PRN (Reason: nausea and vomiting) Qty: 12 0RF acetaminophen [Tylenol] 325 mg tablet 650 mg PO Q4H PRN (Reason: fever or pain) Qty: 30 0RF ibuprofen 600 mg tablet 600 mg PO Q6H PRN (Reason: pain) Qty: 30 0RF ondansetron 4 mg tablet,disintegrating 4 mg PO Q8H PRN (Reason: nausea and vomiting) Qty: 20 0RF amoxicillin-pot clavulanate 875-125 mg tablet 1 tab PO BID 10 Days Qty: 20 0RF ibuprofen 600 mg tablet 600 mg PO Q6H PRN (Reason: pain) Qty: 30 0RF acetaminophen [Tylenol 8 Hour] 650 mg tablet extended release 650 mg PO Q8H PRN (Reason: pain) Qty: 30 0RF Referrals: Physician,Unknown J [Primary Care Provider, Medical] Stand Alone Forms: Work/School Release Interventions: ED Discharge Assessment Last Done: 03/20/25 17:13 Discharge Date/Time: 03/20/25 17:13 Print Language: Indian
[2025-03-20 12:39] VITALS: BP 130/93; PULSE 88; RESP 20; TEMP 36.1; O2SAT 97; BMI 40.4
[2025-03-20 13:01] LABS: MANUAL DIFF FLAG NO
[2025-03-20 13:03] LABS: Hematocrit 38.5 % (37.0-47.0); Hemoglobin 13.1 g/dl (12.0-16.0); Imm Gran Abs Auto 0.03 X10*3/uL (0.00-0.03); Imm Gran Pct Auto 0.4 % (0.0-0.4); Lymphocytes Absolute Auto 1.7 X10*3/uL (1.2-4.9); Mean Corpuscular HGB Conc 34.0 g/dl (31.0-35.0); Mean Corpuscular Hemoglobin 27.3 pg (27.0-33.0); Mean Corpuscular Volume 80.2 fL (80.0-98.0); NRBC Abs Auto 0.000 X10*3/uL (0.0-0.012); NRBC Pct Auto 0.0 /100WBC (0.0-0.2); Platelet Count 323 X10*3/uL (160-400); Red Blood Count 4.80 X10*6/uL (4.20-5.50); White Blood Count 7.7 X10*3/uL (4.8-10.8)
[2025-03-20 13:22] LABS: Alanine Aminotransferase 28 U/L (0-31); Albumin Level 4.4 g/dL (3.5-5.0); Alkaline Phosphatase 44 U/L (39-117); Anion Gap 11 (12-20); Aspartate Amino Transferase 26 U/L (5-31); Blood Urea Nitrogen 13 mg/dL (9-16); Calcium 9.3 mg/dL (8.4-10.2); Carbon Dioxide 27 mmol/L (22-29); Chloride 106 mmol/L (96-108); Creatinine Clr Calc Pharmacy 145.4; Estimated Glomerular Filt Rate > 60; Lipase 15 U/L (8-78); Potassium 4.4 mmol/L (3.3-5.1); Sodium 140 mmol/L (135-145); Total Protein 8.1 g/dL (6.5-8.0)
[2025-03-20 13:51] LABS: Resp Syncy Virus RNA Qual PCR NEGATIVE (Negative); SARS COV2 PCR INHOUSE NEGATIVE (Negative)
[2025-03-20 15:30] VITALS: BP 138/71; PULSE 81; RESP 18; O2SAT 99
[2025-03-20 15:51] LABS: Appearance Urine Clear; Glucose Urine UA Negative (Negative); PH 5.5 (5.0-9.0); Specific Gravity - Urine >= 1.030 (1.005-1.025); UMIC TRIGGER UA YES
[2025-03-20 17:13] VITALS: BP 138/71; PULSE 81; RESP 18; TEMP 36.9; O2SAT 99
== END 2025-03-20 17:13 | disposition home or self-care (01) ==
PROVIDERS: Physician Assistant; Emergency Provider Emergency Medicine
DX: N39.0 Urinary tract infection, site not specified (principal); R10.2 Pelvic and perineal pain; R11.0 Nausea; N92.6 Irregular menstruation, unspecified; Z03.818 Encounter for observation for suspected exposure to other biological agents ruled out; Z79.899 Other long term (current) drug therapy
CPT/HCPCS: 36415; 80053; 81001; 83690; 84702; 85025; 87637; 99283